=== PATIENT | male | born 1990 | race Two or more races ===

== ENCOUNTER 2021-04-08 09:07 | Emergency (ER) | payer OTHER ==
[~2021-04-08] VITALS: Ht 172.7 cm; Wt 74.4 kg
[~2021-04-08 09:07] MED LIST: DICLOFENAC SODI75 MG PO; DOLOGEN CAPLET1 EACH PO; OXYC1TAB9 PO; PERCOCET 5-3251 EACH PO; PROTONIX40 MG PO; TUSNEL LIQUID178 ML PO; ZITHROMAX500 MG PO
[2021-04-09] MEDS ORDERED: ACETAMINOPHEN650 M2 PO (02:21)
[2021-04-09] MEDS ORDERED: CARAFATE1 GM PO (02:32)
[2021-04-09] MEDS ORDERED: PROTONIX20 MG PO (02:32)
== END 2021-04-09 02:43 | disposition home or self-care (01) ==
LOC: ER 09:07
DX: J03.90 Acute tonsillitis, unspecified (principal); B34.9 Viral infection, unspecified; A90 Dengue fever [classical dengue]; D69.6 Thrombocytopenia, unspecified; B96.0 Mycoplasma pneumoniae [M. pneumoniae] as the cause of diseases classified elsewhere; K52.9 Noninfective gastroenteritis and colitis, unspecified; Z11.52 Encounter for screening for COVID-19

== ENCOUNTER 2021-04-27 18:12 | Emergency (ER) | payer OTHER ==
[~2021-04-27] VITALS: Ht 172.7 cm; Wt 73.5 kg
[~2021-04-27 18:12] MED LIST changes: +ACETAMINOPHEN650 M2 PO; +CARAFATE1 GM PO; +PROTONIX20 MG PO
== END 2021-04-27 19:54 | disposition home or self-care (01) ==
LOC: ER 18:12
DX: A54.9 Gonococcal infection, unspecified (principal); A74.9 Chlamydial infection, unspecified

== ENCOUNTER 2021-09-02 15:51 | Inpatient (IN) | payer OTHER ==
[~2021-09-02] VITALS: Ht 172.7 cm; Wt 77.1 kg
[2021-10-04] MEDS ORDERED: INTESTINEX680 M1 PO (10:51)
[2021-10-04] MEDS ORDERED: PERCOCET 5-3251 EACH PO (10:51)
[2021-10-04] MEDS ORDERED: LEVSIN/SL0.125 MG SL (10:51)
== END 2021-10-04 14:09 | disposition home or self-care (01) | DRG 387 ==
LOC: ER 15:51 → SURG 23:23
PROVIDERS: ADMIT Surgery; ATTEND Surgery
PROC: 02HV33Z Insertion of Infusion Device into Superior Vena Cava, Percutaneous Approach (ICD-10-PCS; principal; 2021-09-04)
PROC: BW21Y0Z Computerized Tomography (CT Scan) of Abdomen and Pelvis using Other Contrast, Unenhanced and Enhanced (ICD-10-PCS; 2021-09-07)
PROC: BW21Y0Z Computerized Tomography (CT Scan) of Abdomen and Pelvis using Other Contrast, Unenhanced and Enhanced (ICD-10-PCS; 2021-09-17)
PROC: CW1NLZZ Planar Nuclear Medicine Imaging of Whole Body using Gallium 67 (Ga-67) (ICD-10-PCS; 2021-09-18)
PROC: BW4FZZZ Ultrasonography of Neck (ICD-10-PCS; 2021-09-24)
PROC: 0DBH8ZX Excision of Cecum, Via Natural or Artificial Opening Endoscopic, Diagnostic (ICD-10-PCS; 2021-09-29)
PROC: 0DBB8ZX Excision of Ileum, Via Natural or Artificial Opening Endoscopic, Diagnostic (ICD-10-PCS; 2021-09-29)
DX: K50.818 Crohn's disease of both small and large intestine with other complication (principal); K36 Other appendicitis; Z20.822 Contact with and (suspected) exposure to COVID-19; F43.23 Adjustment disorder with mixed anxiety and depressed mood; Z12.11 Encounter for screening for malignant neoplasm of colon